=== PATIENT | male | born 1945 | race Caucasian/White ===

== ENCOUNTER 2022-08-18 13:34 | Inpatient (IN) | payer MEDICARE, OTHER ==
[2022-08-18] MEDS ORDERED: Pantoprazole 40 MG VIAL ONE ×2 (13:42→13:57)
[2022-08-18] MEDS ORDERED: Octreotide Acetate 100 MCG/ML VIAL ONE (13:42)
[2022-08-18] MEDS ORDERED: Octreotide Acetate 500 MCG/ML VIAL ONE (13:45)
[2022-08-18] MEDS ORDERED: Rocuronium Bromide 10 MG/ML (10ML VIAL) ONE (13:49)
[2022-08-18 13:51] LABS: #Basophils 0.1 thou/uL (0.0-0.2); #Lymphocytes 1.7 thou/uL (1.20-3.40); #Monocytes 0.5 thou/uL (0.11-0.59); #Neutrophils 11.7 thou/uL (1.40-6.50); %Basophils 0.6 % (0.0-1.0); %Eosinophils 0.2 % (0.0-10.0); %Lymphocytes 12.1 % (21.0-51.0); %Monocytes 3.4 % (0.0-10.0); %Neutrophils 83.7 % (42.0-75.0); Hemoglobin 8.5 g/dL (14.0-18.0); Mean Corpuscular HGB CONC 34.2 g/dL (32.0-36.0); Mean Corpuscular Hemoglobin 31.2 pg (27.0-31.0); Mean Corpuscular Volume 91.3 fl (78.0-98.0); Mean Platelet Volume 6.7 fL (7.4-10.4); Platelet Count 282 10x3/uL (130-400); RBC Distribution Width 13.3 % (11.5-14.5); Red Blood Cell (RBC) Count 2.72 mill/uL (4.70-6.10); White Blood Cell (WBC) Count 13.9 10x3/uL (4.8-10.8)
[2022-08-18 14:00] LABS: INR-International Normal Ratio 2.3; PTT 29.2 sec (22.9-36.1); Prothrombin Time 26.1 sec (12.0-14.7)
[2022-08-18] MEDS ORDERED: Octreotide Acetate 1,250 MCG in Sodium Chloride 0.9% 250 ML 250 ML IVPB SCH (14:00)
[2022-08-18] MEDS ORDERED: Pantoprazole 80 MG, Admixture Fee 1 EACH in Sodium Chloride 0.9% 100 ML IVPB SCH (14:00)
[2022-08-18] MEDS ORDERED: HUM PROTHROMBIN CPLX(PCC)4FACT 2,248 UNIT in Admixture Fee 1 EACH IV SCH (14:00)
[2022-08-18 14:12] LABS: ALT (SGPT) 12 U/L (8-55); AST (SGOT) 9 U/L (5-34); Albumin 2.9 g/dL (3.4-4.8); Alkaline Phosphatase 63 U/L (40-110); Anion Gap 22 mmol/L (10-20); BUN (Urea Nitrogen) 63 mg/dL (8.4-25.7); Bilirubin, Total 0.7 mg/dL (0.2-1.2); Calc. Creatinine Clearance 0 mL/min (70-130); Calcium 8.2 mg/dL (7.8-10.44); Carbon Dioxide 13 mmol/L (23-31); Chloride 103 mmol/L (98-107); Estimated GFR 30; Globulin 2.3 g/dL (2.4-3.5); Lipase 32 U/L (8-78); Protein, Total 5.2 g/dL (5.8-8.1); Sodium 132 mmol/L (136-145)
[2022-08-18] MEDS ORDERED: Fentanyl CADD 100 ML IV SCH (14:15)
[2022-08-18 14:17] LABS: Glucose 698 mg/dL (83-110); Potassium 6.2 mmol/L (3.5-5.1)
[2022-08-18 15:21] LABS: Bilirubin Negative (Negative); Blood, Urine Negative (Negative); Clarity Turbid (Clear); Glucose, Urine (Dipstick) Greater than 1000 mg/dL (Negative); Ketone, Urine Trace mg/dL (Negative); Leukocyte Negative Leu/uL (Negative); Nitrite Negative (Negative); Protein, Urine (Dipstick) 10 mg/dL (Neg-Trace); Specific Gravity, Urine 1.022 (1.002-1.036); Urobilinogen Normal mg/dL (Less than 2)
[2022-08-18] MEDS ORDERED: PROPOFOL 20 ML ONE (15:41)
[2022-08-18] MEDS ORDERED: Insulin Regular 300 UNITS/3 ML VIAL ONE (15:48)
[2022-08-18 15:53] LABS: SARS-CoV-2 NAA Rapid Test Not Detected (NotDetected)
[2022-08-18] MEDS ORDERED: Calcium Chloride 1 GM/10 ML Abboject SYRINGE ONE (15:54)
[2022-08-18] MEDS ORDERED: PHENYLEPHRINE-NS 100 MCG/ML 10 ML SYRINGE ONE (15:54)
[2022-08-18] MEDS ORDERED: PROPOFOL 200 MG/20 ML VIAL ONE (15:54)
[2022-08-18] MEDS ORDERED: NOREPINEPHRINE 8 MG/250 ML-D5W 250 ML IVPB PRN (16:13)
[2022-08-18] MEDS ORDERED: Electrolyte Replacement Protocol 1 EACH IVPB ONE (16:13)
[2022-08-18] MEDS ORDERED: HUMULIN R 100 UNITS in Sodium Chloride 0.9% 100 ML IVPB SCH ×2 (16:15→18:30)
[2022-08-18] MEDS ORDERED: Sodium Chloride 0.9% 1,000 ML IV SCH (16:15)
[2022-08-18] MEDS ORDERED: Electrolyte Replacement Protocol FS PRN (16:45)
[2022-08-18] MEDS ORDERED: Propofol 1,000 MG/100 ML VIAL IV ONE (16:55)
[2022-08-18] MEDS ORDERED: Midazolam HCl 2 mg/2 ml Vial SLOW IVP PRN (17:11)
[2022-08-18] MEDS ORDERED: Ventilator Sedation Protocol 1 EACH FS PRN (17:15)
[2022-08-18] MEDS ORDERED: Propofol BOLUS 1,000 MG/100 ML VIAL IV PRN (17:15)
[2022-08-18] MEDS ORDERED: DISCONTINUE PREVIOUS NARCOTIC PAIN MEDICATIONS AND BENZODIAZEPINES FS SCH (17:15)
[2022-08-18] MEDS ORDERED: Morphine 4 MG/ML VIAL SLOW IVP PRN (17:15)
[2022-08-18 17:18] VITALS: BMI 28.7
[2022-08-18 17:48] LABS: Actual Bicarbonate (HCO3v) 20 mEq/L (22-28); Base Excess -8.3 mEq/L (-2.0 to +3.0); Calcium, Ionized (venous) 1.25 mmol/L (1.16-1.32); Chloride (VBG) 106 mmol/L (98-106); Hemoglobin (Hb) 11.2 g/dL (12.6-17.4); Potassium (VBG) 4.34 mmol/L (3.70-5.30); Sodium 136.9 mmol/L (133-146); pH (venous) 7.21 (7.32-7.43)
[2022-08-18 18:02] LABS: Hemoglobin 10.6 g/dL (14.0-18.0); Mean Corpuscular HGB CONC 34.9 g/dL (32.0-36.0); Mean Corpuscular Hemoglobin 31.9 pg (27.0-31.0); Mean Corpuscular Volume 91.3 fl (78.0-98.0); Platelet Count 155 10x3/uL (130-400); RBC Distribution Width 12.5 % (11.5-14.5); Red Blood Cell (RBC) Count 3.32 mill/uL (4.70-6.10); White Blood Cell (WBC) Count 11.6 10x3/uL (4.8-10.8)
[2022-08-18 18:03] LABS: #Basophils 0.1 thou/uL (0.0-0.2); #Monocytes 0.4 thou/uL (0.11-0.59); #Neutrophils 10.2 thou/uL (1.40-6.50); %Basophils 0.5 % (0.0-1.0); %Eosinophils 0.1 % (0.0-10.0); %Lymphocytes 8.2 % (21.0-51.0); %Monocytes 3.1 % (0.0-10.0); %Neutrophils 88.1 % (42.0-75.0); Mean Platelet Volume 6.5 fL (7.4-10.4)
[2022-08-18 18:08] LABS: Lactic Acid 3.6 mmol/L (0.5-2.2)
[2022-08-18 18:25] LABS: ALT (SGPT) 11 U/L (8-55); AST (SGOT) 12 U/L (5-34); Albumin 3.3 g/dL (3.4-4.8); Alkaline Phosphatase 60 U/L (40-110); Anion Gap 16 mmol/L (10-20); BUN (Urea Nitrogen) 59 mg/dL (8.4-25.7); Bilirubin, Total 1.4 mg/dL (0.2-1.2); Calc. Creatinine Clearance 48 mL/min (70-130); Calcium 9.2 mg/dL (7.8-10.44); Carbon Dioxide 17 mmol/L (23-31); Chloride 108 mmol/L (98-107); Estimated GFR 36; Globulin 2.5 g/dL (2.4-3.5); Glucose 395 mg/dL (83-110); Magnesium 4.6 mg/dL (1.6-2.6); Phosphorus 3.1 mg/dL (2.3-4.7); Potassium 4.4 mmol/L (3.5-5.1); Protein, Total 5.8 g/dL (5.8-8.1); Sodium 137 mmol/L (136-145)
[2022-08-18] MEDS ORDERED: ADD ELECTROLYTE REPLACEMENT SET TO PROFILE FS SCH (18:30)
[2022-08-18] MEDS ORDERED: Dextrose 5% in Water 1,000 ML IV PRN (18:30)
[2022-08-18] MEDS ORDERED: Dextrose 5 %-0.45 % NaCl 1,000 ML IV PRN (18:30)
[2022-08-18] MEDS ORDERED: NS 0.9% w/ 20 MEQ KCL 1,000 ML/1,000 ML BAG IV PRN (18:30)
[2022-08-18] MEDS ORDERED: Insulin Regular 300 UNITS/3 ML VIAL IVP SCH (18:30)
[2022-08-18] MEDS ORDERED: Sodium Chloride 0.9% 1,000 ML IV PRN ×4 (18:30)
[2022-08-18] MEDS: cefTRIAXone\\ROCEPHIN 1 GM in Sodium Chloride 0.9% 100 ML IVPB SCH (18:31)
[2022-08-18] MEDS: NS 0.9% w/ 20 MEQ KCL 1,000 ML/1,000 ML BAG IV PRN ×2 (18:35→21:06)
[2022-08-18] MEDS: Propofol 1,000 MG/100 ML VIAL IV PRN (21:05)
[2022-08-18 21:51] LABS: Anion Gap 12 mmol/L (10-20); BUN (Urea Nitrogen) 50 mg/dL (8.4-25.7); Calc. Creatinine Clearance 56 mL/min (70-130); Carbon Dioxide 19 mmol/L (23-31); Chloride 115 mmol/L (98-107); Estimated GFR 44; Glucose 158 mg/dL (83-110); Potassium 4.6 mmol/L (3.5-5.1); Sodium 141 mmol/L (136-145)
[2022-08-18] MEDS: Dextrose 50% Abboject 50 ML SYRINGE SLOW IVP PRN (22:22)
[2022-08-18] MEDS: D5 1/2 NS w/20 mEq KCL 1,000 ML IV PRN (22:22)
[2022-08-19] MEDS: Dextrose 50% Abboject 50 ML SYRINGE SLOW IVP PRN ×2 (00:29→06:30)
[2022-08-19] MEDS: Pantoprazole 80 MG in Sodium Chloride 0.9% 100 ML IVPB SCH ×2 (00:39→11:03)
[2022-08-19 01:51] LABS: Anion Gap 10 mmol/L (10-20); BUN (Urea Nitrogen) 48 mg/dL (8.4-25.7); Calc. Creatinine Clearance 58 mL/min (70-130); Calcium 7.7 mg/dL (7.8-10.44); Carbon Dioxide 20 mmol/L (23-31); Chloride 115 mmol/L (98-107); Estimated GFR 45; Glucose 235 mg/dL (83-110); Potassium 4.8 mmol/L (3.5-5.1); Sodium 140 mmol/L (136-145)
[2022-08-19] MEDS: D5 1/2 NS w/20 mEq KCL 1,000 ML IV PRN ×2 (02:03→05:44)
[2022-08-19] MEDS: Propofol 1,000 MG/100 ML VIAL IV PRN ×2 (02:03→05:44)
[2022-08-19 05:20] LABS: #Eosinphils 0.1 thou/uL (0.0-0.7); #Lymphocytes 1.5 thou/uL (1.20-3.40); #Monocytes 0.4 thou/uL (0.11-0.59); #Neutrophils 6.7 thou/uL (1.40-6.50); %Basophils 0.1 % (0.0-1.0); %Eosinophils 1.6 % (0.0-10.0); %Lymphocytes 16.7 % (21.0-51.0); %Neutrophils 76.6 % (42.0-75.0); Hemoglobin 7.7 g/dL (14.0-18.0); Mean Corpuscular HGB CONC 34.9 g/dL (32.0-36.0); Mean Corpuscular Hemoglobin 31.7 pg (27.0-31.0); Mean Corpuscular Volume 90.9 fl (78.0-98.0); Mean Platelet Volume 6.7 fL (7.4-10.4); Platelet Count 150 10x3/uL (130-400); RBC Distribution Width 13.2 % (11.5-14.5); Red Blood Cell (RBC) Count 2.43 mill/uL (4.70-6.10); White Blood Cell (WBC) Count 8.7 10x3/uL (4.8-10.8)
[2022-08-19 05:44] LABS: ALT (SGPT) 9 U/L (8-55); AST (SGOT) 13 U/L (5-34); Albumin 2.6 g/dL (3.4-4.8); Alkaline Phosphatase 46 U/L (40-110); Anion Gap 10 mmol/L (10-20); BUN (Urea Nitrogen) 43 mg/dL (8.4-25.7); Bilirubin, Total 0.4 mg/dL (0.2-1.2); Calc. Creatinine Clearance 60 mL/min (70-130); Calcium 7.5 mg/dL (7.8-10.44); Carbon Dioxide 17 mmol/L (23-31); Chloride 117 mmol/L (98-107); Estimated GFR 47; Globulin 1.9 g/dL (2.4-3.5); Glucose 162 mg/dL (83-110); Potassium 4.7 mmol/L (3.5-5.1); Protein, Total 4.5 g/dL (5.8-8.1); Sodium 139 mmol/L (136-145)
[2022-08-19 07:05] LABS: Actual Bicarbonate (HCO3a) 17.4 mEq/L (22-28); Base Excess (BEa) -7.4 mEq/L (-2.0 to +3.0); CO2 Tension 32.3 mmHg (35.0-45.0); Calcium, Ionized (arterial) 1.13 mmol/L (1.12-1.30); Hemoglobin (Hb) 8.6 g/dL (14.0-18.0); O2 Tension (PaO2), arterial 114.8 mmHg (> 70.0); Potassium - ABG Lab 4.62 mmol/L (3.70-5.30); pH, Arterial 7.35 (7.35-7.45)
[2022-08-19 07:07] LABS: ALV-art Gradient 58.725 mmHg (0-20); Puncture Site LRA
[2022-08-19] MEDS ORDERED: HumaLOG 300 UNITS/3 ML VIAL SC SCH (09:45)
[2022-08-19] MEDS ORDERED: Insulin Glargine 30 UNITS/0.3 ML VIAL SC SCH (10:30)
[2022-08-19] MEDS: Albumin 25% 25 GM/100 ML BOT IVPB SCH ×3 (11:26→23:04)
[2022-08-19] MEDS ORDERED: Lactated Ringer's 1,000 ML IV SCH (11:45)
[2022-08-19 12:42] LABS: #Eosinphils 0.3 thou/uL (0.0-0.7); #Lymphocytes 1.3 thou/uL (1.20-3.40); #Monocytes 0.6 thou/uL (0.11-0.59); #Neutrophils 7.8 thou/uL (1.40-6.50); %Basophils 0.1 % (0.0-1.0); %Eosinophils 3.5 % (0.0-10.0); %Monocytes 6.2 % (0.0-10.0); %Neutrophils 77.2 % (42.0-75.0); Hemoglobin 7.7 g/dL (14.0-18.0); Mean Corpuscular HGB CONC 33.9 g/dL (32.0-36.0); Mean Corpuscular Hemoglobin 30.7 pg (27.0-31.0); Mean Corpuscular Volume 90.7 fl (78.0-98.0); Mean Platelet Volume 6.4 fL (7.4-10.4); Platelet Count 129 10x3/uL (130-400); RBC Distribution Width 13.2 % (11.5-14.5)
[2022-08-19] MEDS: Dextrose 5 % And 0.9 % NaCl 1,000 ML IV SCH (15:44)
[2022-08-19] MEDS: cefTRIAXone\\ROCEPHIN 1 GM in Sodium Chloride 0.9% 100 ML IVPB SCH (18:01)
[2022-08-19] MEDS: Morphine 2 MG/ML VIAL SLOW IVP PRN ×2 (19:03→23:04)
[2022-08-19] MEDS: Pantoprazole 80 MG, Admixture Fee 1 EACH in Sodium Chloride 0.9% 100 ML IVPB SCH (20:07)
[2022-08-19] MEDS: Ipratropium/Albuterol 3 ML NEB NEB PRN (21:22)
[2022-08-20] MEDS: Ondansetron PF 4 MG/2 ML Vial IVP PRN (01:01)
[2022-08-20] MEDS: Ipratropium/Albuterol 3 ML NEB NEB PRN ×2 (03:19→10:45)
[2022-08-20 05:39] LABS: #Eosinphils 0.1 thou/uL (0.0-0.7); #Lymphocytes 0.9 thou/uL (1.20-3.40); #Monocytes 0.4 thou/uL (0.11-0.59); #Neutrophils 6.6 thou/uL (1.40-6.50); %Basophils 0.1 % (0.0-1.0); %Eosinophils 1.3 % (0.0-10.0); %Monocytes 4.9 % (0.0-10.0); %Neutrophils 82.7 % (42.0-75.0); Hemoglobin 7.2 g/dL (14.0-18.0); Mean Corpuscular HGB CONC 34.7 g/dL (32.0-36.0); Mean Corpuscular Hemoglobin 31.7 pg (27.0-31.0); Mean Corpuscular Volume 91.4 fl (78.0-98.0); Platelet Count 120 10x3/uL (130-400); RBC Distribution Width 13.3 % (11.5-14.5); Red Blood Cell (RBC) Count 2.26 mill/uL (4.70-6.10)
[2022-08-20] MEDS: Dextrose 5 % And 0.9 % NaCl 1,000 ML IV SCH ×2 (05:46→12:03)
[2022-08-20] MEDS: HumaLOG 300 UNITS/3 ML VIAL SC PRN ×3 (05:46→17:32)
[2022-08-20] MEDS: Albumin 25% 25 GM/100 ML BOT IVPB SCH ×3 (05:47→17:33)
[2022-08-20 06:01] LABS: ALT (SGPT) 13 U/L (8-55); AST (SGOT) 57 U/L (5-34); Albumin 3.4 g/dL (3.4-4.8); Alkaline Phosphatase 51 U/L (40-110); Anion Gap 12 mmol/L (10-20); BUN (Urea Nitrogen) 27 mg/dL (8.4-25.7); Bilirubin, Total 0.7 mg/dL (0.2-1.2); Calc. Creatinine Clearance 64 mL/min (70-130); Carbon Dioxide 19 mmol/L (23-31); Chloride 114 mmol/L (98-107); Estimated GFR 50; Globulin 2.2 g/dL (2.4-3.5); Glucose 266 mg/dL (83-110); Potassium 4.4 mmol/L (3.5-5.1); Protein, Total 5.6 g/dL (5.8-8.1); Sodium 141 mmol/L (136-145)
[2022-08-20] MEDS: Pantoprazole 80 MG, Admixture Fee 1 EACH in Sodium Chloride 0.9% 100 ML IVPB SCH (06:09)
[2022-08-20] MEDS: Insulin Glargine 30 UNITS/0.3 ML VIAL SC SCH (10:23)
[2022-08-20] MEDS ORDERED: Furosemide 40 MG/4 ML VIAL ONE (11:09)
[2022-08-20] MEDS ORDERED: Furosemide 40 MG/4 ML VIAL SLOW IVP SCH (11:15)
[2022-08-20] MEDS: Morphine 2 MG/ML VIAL SLOW IVP PRN (14:51)
[2022-08-20] MEDS ORDERED: traMADol HCl 50 MG TAB PO PRN (15:03)
[2022-08-20] MEDS: Ipratropium/Albuterol 3 ML NEB EZPAP PRN ×3 (15:08→23:40)
[2022-08-20] MEDS: cefTRIAXone\\ROCEPHIN 1 GM in Sodium Chloride 0.9% 100 ML IVPB SCH (17:33)
[2022-08-20] MEDS: Pantoprazole 40 MG VIAL IVP SCH (21:11)
[2022-08-21] MEDS: Albumin 25% 25 GM/100 ML BOT IVPB SCH ×2 (00:21→07:02)
[2022-08-21] MEDS: Ipratropium/Albuterol 3 ML NEB EZPAP PRN ×2 (03:10→20:55)
[2022-08-21 04:19] LABS: #Lymphocytes 1.1 thou/uL (1.20-3.40); #Monocytes 0.5 thou/uL (0.11-0.59); #Neutrophils 6.6 thou/uL (1.40-6.50); %Basophils 0.1 % (0.0-1.0); %Eosinophils 0.3 % (0.0-10.0); %Lymphocytes 13.3 % (21.0-51.0); %Monocytes 6.1 % (0.0-10.0); %Neutrophils 80.3 % (42.0-75.0); Hemoglobin 6.6 g/dL (14.0-18.0); Mean Corpuscular HGB CONC 34.9 g/dL (32.0-36.0); Mean Corpuscular Hemoglobin 31.7 pg (27.0-31.0); Mean Corpuscular Volume 90.9 fl (78.0-98.0); Platelet Count 119 10x3/uL (130-400); RBC Distribution Width 13.4 % (11.5-14.5); Red Blood Cell (RBC) Count 2.08 mill/uL (4.70-6.10); White Blood Cell (WBC) Count 8.2 10x3/uL (4.8-10.8)
[2022-08-21 04:34] LABS: ALT (SGPT) 16 U/L (8-55); AST (SGOT) 49 U/L (5-34); Albumin 4.3 g/dL (3.4-4.8); Alkaline Phosphatase 54 U/L (40-110); Anion Gap 16 mmol/L (10-20); BUN (Urea Nitrogen) 30 mg/dL (8.4-25.7); Bilirubin, Total 0.9 mg/dL (0.2-1.2); Calc. Creatinine Clearance 52 mL/min (70-130); Calcium 8.4 mg/dL (7.8-10.44); Carbon Dioxide 18 mmol/L (23-31); Chloride 111 mmol/L (98-107); Estimated GFR 39; Globulin 2.2 g/dL (2.4-3.5); Glucose 269 mg/dL (83-110); Magnesium 1.7 mg/dL (1.6-2.6); Potassium 3.9 mmol/L (3.5-5.1); Protein, Total 6.5 g/dL (5.8-8.1); Sodium 141 mmol/L (136-145)
[2022-08-21] MEDS ORDERED: Furosemide 40 MG/4 ML VIAL SLOW IVP SCH ×2 (05:15→08:00)
[2022-08-21 06:09] LABS: Actual Bicarbonate (HCO3a) 18.4 mEq/L (22-28); CO2 Tension 36.1 mmHg (35.0-45.0); Calcium, Ionized (arterial) 1.13 mmol/L (1.12-1.30); Carboxyhemoglobin (COHb) 0.3 gm% (0.0-3.0); Hemoglobin (Hb) 7.8 g/dL (14.0-18.0); Potassium - ABG Lab 3.94 mmol/L (3.70-5.30); pH, Arterial 7.32 (7.35-7.45)
[2022-08-21 06:11] LABS: O2 Tension (PaO2), arterial 40.1 mmHg (> 70.0); Puncture Site RRA
[2022-08-21] MEDS ORDERED: Metoprolol Tartrate 5 MG/5 ML VIAL ONE (07:03)
[2022-08-21] MEDS ORDERED: Digoxin 0.5 MG/2 ML AMP ONE (07:07)
[2022-08-21] MEDS: Diltiazem HCl 125 MG, Admixture Fee 1 EACH in Sodium Chloride 0.9% 100 ML IVPB SCH ×2 (07:42→18:19)
[2022-08-21] MEDS ORDERED: Piperacillin/Tazobactam 3.375 GM in Sodium Chloride 0.9% 100 ML IVPB SCH ×2 (07:45→08:00)
[2022-08-21] MEDS ORDERED: Magnesium 2 GM/50 ML(in water) 2 GM in Premix Bag 1 BAG IVPB SCH (08:00)
[2022-08-21] MEDS ORDERED: NPH, Human Insulin Isophane 300 UNIT/3 ML VIAL SC SCH (09:00)
[2022-08-21] MEDS: Insulin Glargine 30 UNITS/0.3 ML VIAL SC SCH (09:41)
[2022-08-21] MEDS: Pantoprazole 40 MG VIAL IVP SCH ×2 (09:58→20:38)
[2022-08-21] MEDS: HumaLOG 300 UNITS/3 ML VIAL SC PRN ×2 (10:24→16:45)
[2022-08-21] MEDS: Dextrose 5 % And 0.9 % NaCl 1,000 ML IV SCH (12:00)
[2022-08-21] MEDS: Morphine 2 MG/ML VIAL SLOW IVP PRN ×2 (12:23→21:51)
[2022-08-21 12:45] LABS: Hemoglobin 8.8 g/dL (14.0-18.0)
[2022-08-21] MEDS: Piperacillin/Tazobactam 3.375 GM in Sodium Chloride 0.9% 100 ML IVPB SCH ×2 (12:57→20:37)
[2022-08-21 20:06] LABS: Hemoglobin 8.7 g/dL (14.0-18.0)
[2022-08-21] MEDS ORDERED: Insulin NPH Human Isophane 100 UNIT/ML (10 ML VIAL) SC SCH (21:00)
[2022-08-22] MEDS: Piperacillin/Tazobactam 3.375 GM in Sodium Chloride 0.9% 100 ML IVPB SCH ×3 (04:07→20:27)
[2022-08-22 04:14] LABS: #Eosinphils 0.1 thou/uL (0.0-0.7); #Lymphocytes 1.1 thou/uL (1.20-3.40); #Monocytes 0.5 thou/uL (0.11-0.59); %Basophils 0.1 % (0.0-1.0); %Monocytes 5.6 % (0.0-10.0); %Neutrophils 80.2 % (42.0-75.0); Hemoglobin 8.1 g/dL (14.0-18.0); Mean Corpuscular HGB CONC 34.6 g/dL (32.0-36.0); Mean Corpuscular Hemoglobin 31.9 pg (27.0-31.0); Mean Corpuscular Volume 92.4 fl (78.0-98.0); Mean Platelet Volume 7.6 fL (7.4-10.4); Platelet Count 123 10x3/uL (130-400); RBC Distribution Width 13.4 % (11.5-14.5); Red Blood Cell (RBC) Count 2.54 mill/uL (4.70-6.10); White Blood Cell (WBC) Count 8.7 10x3/uL (4.8-10.8)
[2022-08-22 04:38] LABS: ALT (SGPT) 15 U/L (8-55); AST (SGOT) 32 U/L (5-34); Albumin 3.9 g/dL (3.4-4.8); Alkaline Phosphatase 60 U/L (40-110); Anion Gap 16 mmol/L (10-20); BUN (Urea Nitrogen) 39 mg/dL (8.4-25.7); Bilirubin, Total 1.8 mg/dL (0.2-1.2); Calc. Creatinine Clearance 47 mL/min (70-130); Calcium 8.7 mg/dL (7.8-10.44); Carbon Dioxide 20 mmol/L (23-31); Chloride 113 mmol/L (98-107); Estimated GFR 34; Globulin 2.3 g/dL (2.4-3.5); Glucose 301 mg/dL (83-110); Potassium 3.5 mmol/L (3.5-5.1); Protein, Total 6.2 g/dL (5.8-8.1); Sodium 145 mmol/L (136-145)
[2022-08-22] MEDS: HumaLOG 300 UNITS/3 ML VIAL SC PRN ×2 (06:15→13:00)
[2022-08-22] MEDS: Diltiazem HCl 125 MG, Admixture Fee 1 EACH in Sodium Chloride 0.9% 100 ML IVPB SCH ×2 (08:56→23:42)
[2022-08-22] MEDS: Pantoprazole 40 MG VIAL IVP SCH ×2 (08:58→20:26)
[2022-08-22] MEDS: Furosemide 40 MG/4 ML VIAL SLOW IVP SCH (08:58)
[2022-08-22] MEDS: Insulin NPH Human Isophane 100 UNIT/ML (10 ML VIAL) SC SCH ×2 (08:59→20:27)
[2022-08-22] MEDS: Ipratropium/Albuterol 3 ML NEB EZPAP PRN ×2 (17:19→21:49)
[2022-08-22] MEDS ORDERED: Potassium Chloride 20 MEQ TAB PO SCH (20:15)
[2022-08-22] MEDS: Ondansetron PF 4 MG/2 ML Vial IVP PRN (21:19)
[2022-08-22] MEDS: Bisacodyl 10 MG SUPP PR SCH (22:28)
[2022-08-23] MEDS: Piperacillin/Tazobactam 3.375 GM in Sodium Chloride 0.9% 100 ML IVPB SCH ×3 (04:02→19:53)
[2022-08-23 05:01] LABS: #Eosinphils 0.4 thou/uL (0.0-0.7); #Lymphocytes 1.2 thou/uL (1.20-3.40); #Monocytes 0.4 thou/uL (0.11-0.59); #Neutrophils 5.9 thou/uL (1.40-6.50); %Basophils 0.2 % (0.0-1.0); %Eosinophils 4.8 % (0.0-10.0); %Lymphocytes 15.4 % (21.0-51.0); %Neutrophils 74.6 % (42.0-75.0); Hemoglobin 7.8 g/dL (14.0-18.0); Mean Corpuscular Hemoglobin 32.1 pg (27.0-31.0); Mean Corpuscular Volume 91.9 fl (78.0-98.0); Mean Platelet Volume 7.3 fL (7.4-10.4); Platelet Count 149 10x3/uL (130-400); RBC Distribution Width 13.6 % (11.5-14.5); Red Blood Cell (RBC) Count 2.43 mill/uL (4.70-6.10); White Blood Cell (WBC) Count 7.9 10x3/uL (4.8-10.8)
[2022-08-23 05:21] LABS: ALT (SGPT) 15 U/L (8-55); AST (SGOT) 15 U/L (5-34); Albumin 3.4 g/dL (3.4-4.8); Alkaline Phosphatase 60 U/L (40-110); Anion Gap 12 mmol/L (10-20); BUN (Urea Nitrogen) 45 mg/dL (8.4-25.7); Bilirubin, Total 1.4 mg/dL (0.2-1.2); Calc. Creatinine Clearance 52 mL/min (70-130); Calcium 8.3 mg/dL (7.8-10.44); Carbon Dioxide 21 mmol/L (23-31); Chloride 112 mmol/L (98-107); Estimated GFR 39; Globulin 2.3 g/dL (2.4-3.5); Glucose 172 mg/dL (83-110); Potassium 3.4 mmol/L (3.5-5.1); Protein, Total 5.7 g/dL (5.8-8.1); Sodium 142 mmol/L (136-145)
[2022-08-23] MEDS: Bisacodyl 10 MG SUPP PR SCH ×3 (07:22→21:47)
[2022-08-23] MEDS: HumaLOG 300 UNITS/3 ML VIAL SC PRN ×2 (07:29→11:31)
[2022-08-23] MEDS ORDERED: Potassium Chloride 20 MEQ TAB PO SCH (08:00)
[2022-08-23] MEDS ORDERED: Magnesium 2 GM/50 ML(in water) 2 GM in Premix Bag 1 BAG IVPB SCH (08:00)
[2022-08-23] MEDS: Furosemide 40 MG/4 ML VIAL SLOW IVP SCH (09:56)
[2022-08-23] MEDS: Pantoprazole 40 MG VIAL IVP SCH ×2 (09:56→21:46)
[2022-08-23] MEDS: Insulin NPH Human Isophane 100 UNIT/ML (10 ML VIAL) SC SCH ×2 (09:58→21:44)
[2022-08-23] MEDS: Ipratropium/Albuterol 3 ML NEB EZPAP PRN (11:25)
[2022-08-23] MEDS: Acetaminophen 325 MG TAB PO PRN (11:26)
[2022-08-23] MEDS: Albumin 25% 25 GM/100 ML BOT IVPB SCH ×2 (11:44→18:15)
[2022-08-23] MEDS ORDERED: Simethicone Chewable 80 MG TAB PO SCH (18:00)
[2022-08-23 18:27] LABS: Hemoglobin 8.5 g/dL (14.0-18.0)
[2022-08-24] MEDS: Albumin 25% 25 GM/100 ML BOT IVPB SCH ×2 (00:27→06:21)
[2022-08-24] MEDS: Ipratropium/Albuterol 3 ML NEB EZPAP PRN (01:55)
[2022-08-24] MEDS: Piperacillin/Tazobactam 3.375 GM in Sodium Chloride 0.9% 100 ML IVPB SCH ×3 (03:58→21:00)
[2022-08-24 04:18] LABS: #Eosinphils 0.5 thou/uL (0.0-0.7); #Lymphocytes 1.2 thou/uL (1.20-3.40); #Monocytes 0.3 thou/uL (0.11-0.59); #Neutrophils 5.4 thou/uL (1.40-6.50); %Basophils 0.2 % (0.0-1.0); %Eosinophils 6.9 % (0.0-10.0); %Lymphocytes 15.7 % (21.0-51.0); %Neutrophils 73.3 % (42.0-75.0); Hemoglobin 7.6 g/dL (14.0-18.0); Mean Corpuscular Hemoglobin 31.3 pg (27.0-31.0); Mean Platelet Volume 7.2 fL (7.4-10.4); Platelet Count 158 10x3/uL (130-400); RBC Distribution Width 13.3 % (11.5-14.5); Red Blood Cell (RBC) Count 2.42 mill/uL (4.70-6.10); White Blood Cell (WBC) Count 7.3 10x3/uL (4.8-10.8)
[2022-08-24 04:36] LABS: Anion Gap 15 mmol/L (10-20); BUN (Urea Nitrogen) 44 mg/dL (8.4-25.7); Calc. Creatinine Clearance 57 mL/min (70-130); Calcium 8.4 mg/dL (7.8-10.44); Carbon Dioxide 19 mmol/L (23-31); Chloride 111 mmol/L (98-107); Estimated GFR 41; Glucose 108 mg/dL (83-110); Potassium 3.3 mmol/L (3.5-5.1); Sodium 142 mmol/L (136-145)
[2022-08-24] MEDS: Bisacodyl 10 MG SUPP PR SCH ×3 (06:21→21:28)
[2022-08-24] MEDS ORDERED: Potassium Chloride 20 MEQ TAB PO SCH (08:00)
[2022-08-24] MEDS: Pantoprazole 40 MG VIAL IVP SCH ×2 (09:51→21:28)
[2022-08-24] MEDS: Furosemide 40 MG/4 ML VIAL SLOW IVP SCH (09:51)
[2022-08-24] MEDS: Insulin NPH Human Isophane 100 UNIT/ML (10 ML VIAL) SC SCH (09:52)
[2022-08-24] MEDS ORDERED: ePHEDrine 50 MG/ML VIAL ONE (13:10)
[2022-08-24] MEDS ORDERED: Lidocaine 1% PF 5 ML VIAL ONE (13:10)
[2022-08-24] MEDS ORDERED: PROPOFOL 200 MG/20 ML VIAL ONE (13:10)
[2022-08-24] MEDS ORDERED: Insulin NPH Human Isophane 100 UNIT/ML (10 ML VIAL) SC SCH (16:15)
[2022-08-24] MEDS: HumaLOG 300 UNITS/3 ML VIAL SC PRN (22:22)
[2022-08-25 04:31] LABS: #Eosinphils 0.4 thou/uL (0.0-0.7); #Lymphocytes 1.3 thou/uL (1.20-3.40); #Monocytes 0.4 thou/uL (0.11-0.59); #Neutrophils 4.4 thou/uL (1.40-6.50); %Basophils 0.1 % (0.0-1.0); %Eosinophils 6.6 % (0.0-10.0); %Lymphocytes 19.9 % (21.0-51.0); %Monocytes 6.6 % (0.0-10.0); %Neutrophils 66.9 % (42.0-75.0); Hemoglobin 8.2 g/dL (14.0-18.0); Mean Corpuscular HGB CONC 34.4 g/dL (32.0-36.0); Mean Corpuscular Hemoglobin 31.8 pg (27.0-31.0); Mean Corpuscular Volume 92.4 fl (78.0-98.0); Mean Platelet Volume 7.2 fL (7.4-10.4); Platelet Count 181 10x3/uL (130-400); RBC Distribution Width 13.3 % (11.5-14.5); Red Blood Cell (RBC) Count 2.57 mill/uL (4.70-6.10); White Blood Cell (WBC) Count 6.6 10x3/uL (4.8-10.8)
[2022-08-25] MEDS: Piperacillin/Tazobactam 3.375 GM in Sodium Chloride 0.9% 100 ML IVPB SCH ×3 (04:42→19:51)
[2022-08-25 04:47] LABS: Anion Gap 13 mmol/L (10-20); BUN (Urea Nitrogen) 39 mg/dL (8.4-25.7); Calc. Creatinine Clearance 64 mL/min (70-130); Calcium 8.3 mg/dL (7.8-10.44); Carbon Dioxide 22 mmol/L (23-31); Chloride 112 mmol/L (98-107); Estimated GFR 47; Glucose 115 mg/dL (83-110); Potassium 3.4 mmol/L (3.5-5.1); Sodium 144 mmol/L (136-145)
[2022-08-25] MEDS ORDERED: Potassium Chloride 40 MEQ in Premix Bag 1 BAG IVPB SCH (06:15)
[2022-08-25] MEDS: Bisacodyl 10 MG SUPP PR SCH ×3 (06:23→20:27)
[2022-08-25] MEDS: Furosemide 40 MG/4 ML VIAL SLOW IVP SCH (09:49)
[2022-08-25] MEDS: Pantoprazole 40 MG VIAL IVP SCH ×2 (09:49→20:47)
[2022-08-25] MEDS: Insulin NPH Human Isophane 100 UNIT/ML (10 ML VIAL) SC SCH ×2 (09:51→20:48)
[2022-08-25] MEDS: HumaLOG 300 UNITS/3 ML VIAL SC PRN (18:12)
[2022-08-26 04:25] LABS: #Eosinphils 0.4 thou/uL (0.0-0.7); #Lymphocytes 1.3 thou/uL (1.20-3.40); #Monocytes 0.4 thou/uL (0.11-0.59); %Basophils 0.6 % (0.0-1.0); %Eosinophils 5.2 % (0.0-10.0); %Lymphocytes 18.4 % (21.0-51.0); %Neutrophils 70.8 % (42.0-75.0); Hemoglobin 9.3 g/dL (14.0-18.0); Mean Corpuscular Hemoglobin 31.4 pg (27.0-31.0); Mean Corpuscular Volume 92.3 fl (78.0-98.0); Mean Platelet Volume 7.2 fL (7.4-10.4); Platelet Count 206 10x3/uL (130-400); Red Blood Cell (RBC) Count 2.95 mill/uL (4.70-6.10)
[2022-08-26 04:33] LABS: Anion Gap 14 mmol/L (10-20); BUN (Urea Nitrogen) 30 mg/dL (8.4-25.7); Calc. Creatinine Clearance 71 mL/min (70-130); Calcium 8.7 mg/dL (7.8-10.44); Carbon Dioxide 21 mmol/L (23-31); Chloride 112 mmol/L (98-107); Estimated GFR 54; Glucose 132 mg/dL (83-110); Potassium 3.5 mmol/L (3.5-5.1); Sodium 143 mmol/L (136-145)
[2022-08-26] MEDS ORDERED: Potassium Chloride 40 MEQ in Premix Bag 1 BAG IVPB SCH (08:00)
[2022-08-26] MEDS: Pantoprazole 40 MG VIAL IVP SCH ×2 (09:06→20:33)
[2022-08-26] MEDS: Acetaminophen 325 MG TAB PO PRN (09:07)
[2022-08-26] MEDS: Insulin NPH Human Isophane 100 UNIT/ML (10 ML VIAL) SC SCH ×2 (09:08→20:33)
[2022-08-26] MEDS: Furosemide 40 MG/4 ML VIAL SLOW IVP SCH (09:08)
[2022-08-26] MEDS: Bisacodyl 10 MG SUPP PR SCH ×2 (09:09→20:32)
[2022-08-26] MEDS: HumaLOG 300 UNITS/3 ML VIAL SC PRN ×2 (11:39→17:39)
[2022-08-26 16:48] VITALS: BP 109/64
[2022-08-26] MEDS: Budesonide 0.25 MG/2 ML NEB INH SCH (19:00)
[2022-08-26] MEDS: Ipratropium/Albuterol 3 ML NEB EZPAP PRN (19:01)
[2022-08-27] MEDS: Ipratropium/Albuterol 3 ML NEB EZPAP PRN ×2 (00:16→06:49)
[2022-08-27 04:20] LABS: #Eosinphils 0.2 thou/uL (0.0-0.7); #Lymphocytes 1.5 thou/uL (1.20-3.40); #Monocytes 0.4 thou/uL (0.11-0.59); %Basophils 0.2 % (0.0-1.0); %Eosinophils 3.2 % (0.0-10.0); %Monocytes 5.3 % (0.0-10.0); %Neutrophils 70.3 % (42.0-75.0); Hemoglobin 8.7 g/dL (14.0-18.0); Mean Corpuscular HGB CONC 33.4 g/dL (32.0-36.0); Mean Corpuscular Hemoglobin 30.7 pg (27.0-31.0); Mean Corpuscular Volume 91.9 fl (78.0-98.0); Mean Platelet Volume 7.2 fL (7.4-10.4); Platelet Count 194 10x3/uL (130-400); RBC Distribution Width 13.1 % (11.5-14.5); Red Blood Cell (RBC) Count 2.84 mill/uL (4.70-6.10); White Blood Cell (WBC) Count 7.1 10x3/uL (4.8-10.8)
[2022-08-27 04:38] LABS: Anion Gap 14 mmol/L (10-20); BUN (Urea Nitrogen) 24 mg/dL (8.4-25.7); Calc. Creatinine Clearance 70 mL/min (70-130); Calcium 8.5 mg/dL (7.8-10.44); Carbon Dioxide 22 mmol/L (23-31); Chloride 109 mmol/L (98-107); Estimated GFR 54; Glucose 176 mg/dL (83-110); Potassium 3.6 mmol/L (3.5-5.1); Sodium 141 mmol/L (136-145)
[2022-08-27] MEDS: HumaLOG 300 UNITS/3 ML VIAL SC PRN ×3 (04:53→17:12)
[2022-08-27] MEDS: Budesonide 0.25 MG/2 ML NEB INH SCH (06:49)
[2022-08-27] MEDS ORDERED: Furosemide 40 MG/4 ML VIAL SLOW IVP SCH (08:51)
[2022-08-27] MEDS: Bisacodyl 10 MG SUPP PR SCH (09:15)
[2022-08-27] MEDS: Pantoprazole 40 MG VIAL IVP SCH (09:16)
[2022-08-27] MEDS: Insulin NPH Human Isophane 100 UNIT/ML (10 ML VIAL) SC SCH (09:16)
[2022-08-27 16:32] VITALS: TEMP 98.5
== END 2022-08-27 18:15 | DRG 368 ==
LOC: ERS 13:34 → CCU 16:01 → SDC 16:01 → CCU 17:07 → 2NO 08-20 18:22 → CCU 08-21 06:53
PROVIDERS: ADMIT Family Medicine; ATTEND Family Medicine
PROC: 30233N1 Transfusion of Nonautologous Red Blood Cells into Peripheral Vein, Percutaneous Approach (ICD-10-PCS; principal; 2022-08-18)
PROC: 30233K1 Transfusion of Nonautologous Frozen Plasma into Peripheral Vein, Percutaneous Approach (ICD-10-PCS; 2022-08-18)
PROC: 3E033XZ Introduction of Vasopressor into Peripheral Vein, Percutaneous Approach (ICD-10-PCS; 2022-08-18)
PROC: 30283B1 Transfusion of Nonautologous 4-Factor Prothrombin Complex Concentrate into Vein, Percutaneous Approach (ICD-10-PCS; 2022-08-18)
PROC: 5A1935Z Respiratory Ventilation, Less than 24 Consecutive Hours (ICD-10-PCS; 2022-08-18)
PROC: 06HY33Z Insertion of Infusion Device into Lower Vein, Percutaneous Approach (ICD-10-PCS; 2022-08-18)
PROC: 0BH17EZ Insertion of Endotracheal Airway into Trachea, Via Natural or Artificial Opening (ICD-10-PCS; 2022-08-18)
PROC: 0W3P8ZZ Control Bleeding in Gastrointestinal Tract, Via Natural or Artificial Opening Endoscopic (ICD-10-PCS; 2022-08-18)
PROC: 5A09357 Assistance with Respiratory Ventilation, Less than 24 Consecutive Hours, Continuous Positive Airway Pressure (ICD-10-PCS; 2022-08-21)
PROC: 0D9 Gastrointestinal System, Drainage (ICD-10-PCS; 2022-08-24)
DX: K22.6 Gastro-esophageal laceration-hemorrhage syndrome (principal); E11.10 Type 2 diabetes mellitus with ketoacidosis without coma; G93.41 Metabolic encephalopathy; R57.8 Other shock; J96.01 Acute respiratory failure with hypoxia; J69.0 Pneumonitis due to inhalation of food and vomit; K56.7 Ileus, unspecified; N17.9 Acute kidney failure, unspecified; D68.8 Other specified coagulation defects; Z20.822 Contact with and (suspected) exposure to COVID-19; K22.11 Ulcer of esophagus with bleeding; K64.8 Other hemorrhoids; I48.0 Paroxysmal atrial fibrillation; I10 Essential (primary) hypertension; E78.5 Hyperlipidemia, unspecified; J44.9 Chronic obstructive pulmonary disease, unspecified; G47.33 Obstructive sleep apnea (adult) (pediatric); E87.5 Hyperkalemia; Z78.1 Physical restraint status; Z95.2 Presence of prosthetic heart valve; Z88.8 Allergy status to other drugs, medicaments and biological substances; Z79.899 Other long term (current) drug therapy; Z79.01 Long term (current) use of anticoagulants; Z79.82 Long term (current) use of aspirin
CPT/HCPCS: 0439T; 31500; 36415; 36416; 36430; 36556; 36600; 51702; 71045; 74018; 80048; 80053; 81003; 82010; 82805; 83605; 83690; 83735; 83880; 84100; 84484; 85025; 85610; 85730; 86850; 86900; 86901; 87811; 93005; 93010; 93306; 94002; 94003; 94640; 94660; 94760; 96361; 96365; 96366; 96368; 96374; 96375; 96376; C9113; J0696; J1815; J1940; J2250; J2272; J2354; J2405; J2543; J2704; J3010; J3475; J3480; J3490; J7042; J7050; J7120; J7168; J7620; J7626; J7999; P9016; P9047; P9048

== ENCOUNTER 2022-09-11 17:23 | Inpatient (IN) | payer MEDICARE, OTHER ==
[~2022-09-11 17:23] MED LIST: Iopamidol-370 76% 500 ML 1 ML ONE
[2022-09-11 18:11] LABS: #Eosinphils 0.2 thou/uL (0.0-0.7); #Lymphocytes 2.1 thou/uL (1.20-3.40); #Monocytes 0.5 thou/uL (0.11-0.59); #Neutrophils 2.8 thou/uL (1.40-6.50); %Basophils 0.6 % (0.0-1.0); %Eosinophils 4.3 % (0.0-10.0); %Lymphocytes 37.2 % (21.0-51.0); %Monocytes 9.2 % (0.0-10.0); %Neutrophils 48.7 % (42.0-75.0); Hemoglobin 10.1 g/dL (14.0-18.0); Mean Corpuscular HGB CONC 34.7 g/dL (32.0-36.0); Mean Corpuscular Hemoglobin 31.8 pg (27.0-31.0); Mean Corpuscular Volume 91.5 fl (78.0-98.0); Mean Platelet Volume 6.5 fL (7.4-10.4); Platelet Count 199 10x3/uL (130-400); RBC Distribution Width 13.2 % (11.5-14.5); Red Blood Cell (RBC) Count 3.18 mill/uL (4.70-6.10); White Blood Cell (WBC) Count 5.7 10x3/uL (4.8-10.8)
[2022-09-11 18:33] LABS: ALT (SGPT) 7 U/L (8-55); AST (SGOT) 17 U/L (5-34); Albumin 3.6 g/dL (3.4-4.8); Alkaline Phosphatase 85 U/L (40-110); Anion Gap 15 mmol/L (10-20); BUN (Urea Nitrogen) 28 mg/dL (8.4-25.7); Bilirubin, Total 0.6 mg/dL (0.2-1.2); Calc. Creatinine Clearance 0 mL/min (70-130); Calcium 9.1 mg/dL (7.8-10.44); Carbon Dioxide 17 mmol/L (23-31); Chloride 110 mmol/L (98-107); Estimated GFR 51; Globulin 3.1 g/dL (2.4-3.5); Glucose 117 mg/dL (83-110); Lipase 75 U/L (8-78); Protein, Total 6.7 g/dL (5.8-8.1); Sodium 138 mmol/L (136-145)
[2022-09-11] MEDS ORDERED: Famotidine/PF 20 mg/2ml Vial ONE (19:08)
[2022-09-11] MEDS ORDERED: diphenhydrAMINE 50 MG/ML VIAL ONE (19:08)
[2022-09-11] MEDS ORDERED: methylPREDNISolone Sod Succ 40 MG VIAL ONE (19:08)
[2022-09-11 21:12] LABS: Lactic Acid 1.4 mmol/L (0.5-2.2)
[2022-09-11] MEDS ORDERED: Acetaminophen 650 MG Suppository PR PRN (23:01)
[2022-09-11] MEDS ORDERED: Acetaminophen 325 MG TAB PO PRN (23:01)
[2022-09-11] MEDS ORDERED: Ondansetron ODT 4 MG TAB PO PRN (23:01)
[2022-09-11] MEDS ORDERED: Ondansetron PF 4 MG/2 ML Vial IVP PRN (23:01)
[2022-09-11 23:13] LABS: Troponin I 0.031 ng/mL (< 0.028)
[2022-09-12 00:15] VITALS: BMI 30.2
[2022-09-12] MEDS ORDERED: Pantoprazole 40 MG VIAL IVP SCH (00:45)
[2022-09-12] MEDS ORDERED: Dextrose 5% in Water 1,000 ML IV PRN (01:02)
[2022-09-12] MEDS ORDERED: HumaLOG 300 UNITS/3 ML VIAL SC PRN (01:02)
[2022-09-12] MEDS ORDERED: Dextrose 50% Abboject 50 ML SYRINGE SLOW IVP PRN (01:02)
[2022-09-12] MEDS: Sodium Chloride 0.9% 1,000 ML IV SCH ×2 (01:43→11:00)
[2022-09-12 01:51] LABS: Troponin I 0.031 ng/mL (< 0.028)
[2022-09-12 05:42] LABS: #Lymphocytes 0.4 thou/uL (1.20-3.40); #Monocytes 0.1 thou/uL (0.11-0.59); #Neutrophils 4.2 thou/uL (1.40-6.50); %Basophils 0.5 % (0.0-1.0); %Eosinophils 0.2 % (0.0-10.0); %Lymphocytes 8.8 % (21.0-51.0); %Monocytes 1.1 % (0.0-10.0); %Neutrophils 89.4 % (42.0-75.0); Hemoglobin 9.5 g/dL (14.0-18.0); Mean Corpuscular HGB CONC 34.4 g/dL (32.0-36.0); Mean Corpuscular Hemoglobin 31.9 pg (27.0-31.0); Mean Platelet Volume 6.6 fL (7.4-10.4); Platelet Count 182 10x3/uL (130-400); RBC Distribution Width 13.4 % (11.5-14.5); Red Blood Cell (RBC) Count 2.97 mill/uL (4.70-6.10); White Blood Cell (WBC) Count 4.7 10x3/uL (4.8-10.8)
[2022-09-12 06:04] LABS: Anion Gap 16 mmol/L (10-20); BUN (Urea Nitrogen) 30 mg/dL (8.4-25.7); Calc. Creatinine Clearance 58 mL/min (70-130); Calcium 8.6 mg/dL (7.8-10.44); Carbon Dioxide 15 mmol/L (23-31); Chloride 110 mmol/L (98-107); Estimated GFR 46; Glucose 369 mg/dL (83-110); Potassium 4.7 mmol/L (3.5-5.1); Sodium 136 mmol/L (136-145)
[2022-09-12] MEDS: HumaLOG 300 UNITS/3 ML VIAL SC PRN ×3 (06:13→17:40)
[2022-09-12] MEDS: Pantoprazole 40 MG VIAL IVP SCH (09:10)
[2022-09-12] MEDS: FLUoxetine HCl 10 MG CAP PO SCH (09:11)
[2022-09-12] MEDS: Cholecalciferol 1,000 UNITS (25 MCG) TAB PO SCH (09:11)
[2022-09-12] MEDS: Cyanocobalamin (Vitamin B-12) 1,000 MCG TAB PO SCH (09:11)
[2022-09-12] MEDS: Montelukast Sodium 10 mg Tablet PO SCH (09:11)
[2022-09-12] MEDS: Aspirin Chewable 81 MG TAB PO SCH (09:11)
[2022-09-12] MEDS ORDERED: Insulin NPH Human Isophane 100 UNIT/ML (10 ML VIAL) SC SCH (10:15)
[2022-09-12] MEDS: Ipratropium Bromide 2.5 ml Neb NEB SCH ×2 (12:47→19:11)
[2022-09-12] MEDS: Mometasone 200 MCG/Formoterol 5 MCG 120 PUFF INHALER INH SCH (19:29)
[2022-09-12] MEDS: Atorvastatin Calcium 40 MG TAB PO SCH (21:02)
[2022-09-12] MEDS: Insulin NPH Human Isophane 100 UNIT/ML (10 ML VIAL) SC SCH (21:03)
[2022-09-13] MEDS: Ipratropium Bromide 2.5 ml Neb NEB SCH ×4 (00:37→20:08)
[2022-09-13 05:09] LABS: SARS-CoV-2 NAA Rapid Test Not Detected (NotDetected)
[2022-09-13 06:24] LABS: #Eosinphils 0.3 thou/uL (0.0-0.7); #Lymphocytes 2.2 thou/uL (1.20-3.40); #Monocytes 0.3 thou/uL (0.11-0.59); %Basophils 0.6 % (0.0-1.0); %Eosinophils 4.9 % (0.0-10.0); %Monocytes 4.2 % (0.0-10.0); %Neutrophils 58.3 % (42.0-75.0); Hemoglobin 9.4 g/dL (14.0-18.0); Mean Corpuscular HGB CONC 33.9 g/dL (32.0-36.0); Mean Corpuscular Volume 94.5 fl (78.0-98.0); Mean Platelet Volume 6.8 fL (7.4-10.4); Platelet Count 180 10x3/uL (130-400); RBC Distribution Width 13.6 % (11.5-14.5); Red Blood Cell (RBC) Count 2.92 mill/uL (4.70-6.10); White Blood Cell (WBC) Count 6.9 10x3/uL (4.8-10.8)
[2022-09-13] MEDS: Mometasone 200 MCG/Formoterol 5 MCG 120 PUFF INHALER INH SCH ×2 (06:51→20:09)
[2022-09-13 06:52] LABS: ALT (SGPT) Less than 7 U/L (8-55); AST (SGOT) 9 U/L (5-34); Albumin 3.3 g/dL (3.4-4.8); Alkaline Phosphatase 72 U/L (40-110); Anion Gap 11 mmol/L (10-20); BUN (Urea Nitrogen) 21 mg/dL (8.4-25.7); Bilirubin, Total 0.4 mg/dL (0.2-1.2); Calc. Creatinine Clearance 68 mL/min (70-130); Calcium 8.6 mg/dL (7.8-10.44); Carbon Dioxide 21 mmol/L (23-31); Chloride 112 mmol/L (98-107); Estimated GFR 56; Globulin 2.8 g/dL (2.4-3.5); Glucose 134 mg/dL (83-110); Magnesium 1.7 mg/dL (1.6-2.6); Potassium 4.2 mmol/L (3.5-5.1); Protein, Total 6.1 g/dL (5.8-8.1); Sodium 140 mmol/L (136-145)
[2022-09-13] MEDS ORDERED: Magnesium Sulfate In Water 4 GM in Premix Bag 1 BAG IVPB SCH (08:30)
[2022-09-13] MEDS: FLUoxetine HCl 10 MG CAP PO SCH (08:50)
[2022-09-13] MEDS: Montelukast Sodium 10 mg Tablet PO SCH (08:54)
[2022-09-13] MEDS: Cyanocobalamin (Vitamin B-12) 1,000 MCG TAB PO SCH (08:54)
[2022-09-13] MEDS: Cholecalciferol 1,000 UNITS (25 MCG) TAB PO SCH (08:54)
[2022-09-13] MEDS: Aspirin Chewable 81 MG TAB PO SCH (08:54)
[2022-09-13] MEDS: Pantoprazole 40 MG VIAL IVP SCH (08:55)
[2022-09-13] MEDS: Insulin NPH Human Isophane 100 UNIT/ML (10 ML VIAL) SC SCH ×2 (08:55→21:30)
[2022-09-13] MEDS: Atorvastatin Calcium 40 MG TAB PO SCH (21:30)
[2022-09-14] MEDS: Ipratropium Bromide 2.5 ml Neb NEB SCH ×5 (00:28→23:49)
[2022-09-14 06:13] LABS: #Eosinphils 0.4 thou/uL (0.0-0.7); #Lymphocytes 1.5 thou/uL (1.20-3.40); #Monocytes 0.5 thou/uL (0.11-0.59); #Neutrophils 3.3 thou/uL (1.40-6.50); %Basophils 0.2 % (0.0-1.0); %Eosinophils 7.4 % (0.0-10.0); %Lymphocytes 25.7 % (21.0-51.0); %Neutrophils 58.7 % (42.0-75.0); Hemoglobin 9.7 g/dL (14.0-18.0); Mean Platelet Volume 6.7 fL (7.4-10.4); Platelet Count 185 10x3/uL (130-400); RBC Distribution Width 13.3 % (11.5-14.5); Red Blood Cell (RBC) Count 3.04 mill/uL (4.70-6.10); White Blood Cell (WBC) Count 5.7 10x3/uL (4.8-10.8)
[2022-09-14 06:47] LABS: ALT (SGPT) 8 U/L (8-55); AST (SGOT) 9 U/L (5-34); Albumin 3.2 g/dL (3.4-4.8); Alkaline Phosphatase 78 U/L (40-110); Anion Gap 12 mmol/L (10-20); BUN (Urea Nitrogen) 19 mg/dL (8.4-25.7); Bilirubin, Total 0.7 mg/dL (0.2-1.2); Calc. Creatinine Clearance 78 mL/min (70-130); Calcium 8.7 mg/dL (7.8-10.44); Carbon Dioxide 21 mmol/L (23-31); Chloride 112 mmol/L (98-107); Estimated GFR 65; Globulin 2.8 g/dL (2.4-3.5); Glucose 158 mg/dL (83-110); Magnesium 2.1 mg/dL (1.6-2.6); Potassium 4.4 mmol/L (3.5-5.1); Sodium 141 mmol/L (136-145)
[2022-09-14] MEDS: Mometasone 200 MCG/Formoterol 5 MCG 120 PUFF INHALER INH SCH ×2 (07:43→20:01)
[2022-09-14] MEDS ORDERED: Regadenoson 0.4 MG/5 ML SYRINGE ONE (11:18)
[2022-09-14] MEDS ORDERED: FLUoxetine HCl 10 MG CAP PO SCH (13:15)
[2022-09-14] MEDS ORDERED: Montelukast Sodium 10 mg Tablet PO SCH (13:15)
[2022-09-14] MEDS ORDERED: Cyanocobalamin (Vitamin B-12) 1,000 MCG TAB PO SCH (13:15)
[2022-09-14] MEDS ORDERED: Aspirin Chewable 81 MG TAB PO SCH (13:15)
[2022-09-14] MEDS ORDERED: Cholecalciferol 1,000 UNITS (25 MCG) TAB PO SCH (13:15)
[2022-09-14] MEDS: FLUoxetine HCl 10 MG CAP PO SCH (13:25)
[2022-09-14] MEDS: Insulin NPH Human Isophane 100 UNIT/ML (10 ML VIAL) SC SCH ×3 (13:25→21:00)
[2022-09-14] MEDS: Cyanocobalamin (Vitamin B-12) 1,000 MCG TAB PO SCH (13:25)
[2022-09-14] MEDS: Aspirin Chewable 81 MG TAB PO SCH (13:25)
[2022-09-14] MEDS: Cholecalciferol 1,000 UNITS (25 MCG) TAB PO SCH (13:25)
[2022-09-14] MEDS: Pantoprazole 40 MG VIAL IVP SCH ×3 (13:26→16:06)
[2022-09-14] MEDS: Montelukast Sodium 10 mg Tablet PO SCH (13:26)
[2022-09-14] MEDS: HumaLOG 300 UNITS/3 ML VIAL SC PRN ×2 (13:44→17:34)
[2022-09-14] MEDS: Niacin 500 MG TAB PO SCH (21:00)
[2022-09-14] MEDS: Atorvastatin Calcium 40 MG TAB PO SCH (21:00)
[2022-09-15 06:26] LABS: #Eosinphils 0.3 thou/uL (0.0-0.7); #Lymphocytes 1.4 thou/uL (1.20-3.40); #Monocytes 0.4 thou/uL (0.11-0.59); #Neutrophils 2.6 thou/uL (1.40-6.50); %Basophils 0.3 % (0.0-1.0); %Eosinophils 7.1 % (0.0-10.0); %Lymphocytes 29.9 % (21.0-51.0); %Monocytes 7.7 % (0.0-10.0); Hemoglobin 10.1 g/dL (14.0-18.0); Mean Corpuscular Hemoglobin 31.5 pg (27.0-31.0); Mean Corpuscular Volume 92.5 fl (78.0-98.0); Mean Platelet Volume 6.5 fL (7.4-10.4); Platelet Count 170 10x3/uL (130-400); RBC Distribution Width 13.2 % (11.5-14.5); Red Blood Cell (RBC) Count 3.21 mill/uL (4.70-6.10); White Blood Cell (WBC) Count 4.6 10x3/uL (4.8-10.8)
[2022-09-15] MEDS: HumaLOG 300 UNITS/3 ML VIAL SC PRN ×3 (06:34→18:07)
[2022-09-15 06:49] LABS: ALT (SGPT) 8 U/L (8-55); AST (SGOT) 9 U/L (5-34); Albumin 3.3 g/dL (3.4-4.8); Alkaline Phosphatase 83 U/L (40-110); Anion Gap 10 mmol/L (10-20); BUN (Urea Nitrogen) 15 mg/dL (8.4-25.7); Bilirubin, Total 0.9 mg/dL (0.2-1.2); Calc. Creatinine Clearance 80 mL/min (70-130); Calcium 8.9 mg/dL (7.8-10.44); Carbon Dioxide 22 mmol/L (23-31); Chloride 109 mmol/L (98-107); Estimated GFR 67; Glucose 177 mg/dL (83-110); Magnesium 1.9 mg/dL (1.6-2.6); Potassium 4.2 mmol/L (3.5-5.1); Protein, Total 6.3 g/dL (5.8-8.1); Sodium 137 mmol/L (136-145)
[2022-09-15] MEDS: Ipratropium Bromide 2.5 ml Neb NEB SCH ×3 (07:27→19:50)
[2022-09-15] MEDS: Mometasone 200 MCG/Formoterol 5 MCG 120 PUFF INHALER INH SCH ×2 (07:27→19:52)
[2022-09-15] MEDS ORDERED: Magnesium 2 GM/50 ML(in water) 2 GM in Premix Bag 1 BAG IVPB SCH (08:45)
[2022-09-15] MEDS ORDERED: FLU VACC QS2022-23(65YR UP)/PF 240 MCG/0.7 ML SYRINGE IM ONE (09:00)
[2022-09-15] MEDS: Aspirin Chewable 81 MG TAB PO SCH (09:26)
[2022-09-15] MEDS: Cholecalciferol 1,000 UNITS (25 MCG) TAB PO SCH (09:27)
[2022-09-15] MEDS: Montelukast Sodium 10 mg Tablet PO SCH (09:27)
[2022-09-15] MEDS: FLUoxetine HCl 10 MG CAP PO SCH (09:27)
[2022-09-15] MEDS: Cyanocobalamin (Vitamin B-12) 1,000 MCG TAB PO SCH (09:27)
[2022-09-15] MEDS: Niacin 500 MG TAB PO SCH ×2 (09:27→21:27)
[2022-09-15] MEDS: Insulin NPH Human Isophane 100 UNIT/ML (10 ML VIAL) SC SCH ×2 (09:28→21:27)
[2022-09-15] MEDS: Atorvastatin Calcium 40 MG TAB PO SCH (21:27)
[2022-09-16] MEDS: Ipratropium Bromide 2.5 ml Neb NEB SCH ×3 (00:18→13:34)
[2022-09-16 05:39] LABS: ALT (SGPT) 7 U/L (8-55); AST (SGOT) 7 U/L (5-34); Albumin 3.2 g/dL (3.4-4.8); Alkaline Phosphatase 74 U/L (40-110); Anion Gap 11 mmol/L (10-20); BUN (Urea Nitrogen) 18 mg/dL (8.4-25.7); Bilirubin, Total 0.8 mg/dL (0.2-1.2); Calc. Creatinine Clearance 66 mL/min (70-130); Calcium 8.4 mg/dL (7.8-10.44); Carbon Dioxide 20 mmol/L (23-31); Chloride 109 mmol/L (98-107); Estimated GFR 54; Globulin 2.6 g/dL (2.4-3.5); Glucose 192 mg/dL (83-110); Protein, Total 5.8 g/dL (5.8-8.1); Sodium 136 mmol/L (136-145)
[2022-09-16] MEDS: HumaLOG 300 UNITS/3 ML VIAL SC PRN ×2 (06:27→13:12)
[2022-09-16] MEDS: Mometasone 200 MCG/Formoterol 5 MCG 120 PUFF INHALER INH SCH (07:21)
[2022-09-16] MEDS ORDERED: Magnesium Oxide 400 MG TAB PO SCH (09:00)
[2022-09-16] MEDS: Niacin 500 MG TAB PO SCH (09:26)
[2022-09-16] MEDS: FLUoxetine HCl 10 MG CAP PO SCH (09:27)
[2022-09-16] MEDS: Montelukast Sodium 10 mg Tablet PO SCH (09:27)
[2022-09-16] MEDS: Cholecalciferol 1,000 UNITS (25 MCG) TAB PO SCH (09:27)
[2022-09-16] MEDS: Insulin NPH Human Isophane 100 UNIT/ML (10 ML VIAL) SC SCH (09:29)
[2022-09-16] MEDS: Aspirin Chewable 81 MG TAB PO SCH (09:30)
[2022-09-16] MEDS: Cyanocobalamin (Vitamin B-12) 1,000 MCG TAB PO SCH (09:30)
[2022-09-16 12:22] VITALS: TEMP 97.4
[2022-09-16 12:45] VITALS: BP 98/54
== END 2022-09-16 15:39 | disposition home health service (06) | DRG 640 ==
LOC: ERS 17:23 → NEURO 22:20 → OBSVTOIN 09-12 16:38
PROVIDERS: ADMIT Student in an Organized Health Care Education/Training Program; ATTEND Family Medicine
DX: E86.0 Dehydration (principal); K22.6 Gastro-esophageal laceration-hemorrhage syndrome; I47.29 Other ventricular tachycardia; N17.9 Acute kidney failure, unspecified; I95.1 Orthostatic hypotension; Z66 Do not resuscitate; J44.9 Chronic obstructive pulmonary disease, unspecified; E78.5 Hyperlipidemia, unspecified; I25.10 Atherosclerotic heart disease of native coronary artery without angina pectoris; E11.22 Type 2 diabetes mellitus with diabetic chronic kidney disease; I25.2 Old myocardial infarction; Z91.041 Radiographic dye allergy status; Z79.82 Long term (current) use of aspirin; Z79.51 Long term (current) use of inhaled steroids; Z79.899 Other long term (current) drug therapy; Z95.2 Presence of prosthetic heart valve
CPT/HCPCS: 36415; 36416; 71045; 71275; 74177; 78452; 80048; 80053; 83605; 83690; 83735; 83880; 84484; 85025; 86850; 86900; 86901; 93005; 93010; 93017; 93306; 94640; 96361; 96374; 96375; 96376; A9500; C9113; G0378; J1200; J1815; J2785; J2920; J3475; J7050; Q9967; S0028; U0002; U0003; U0005

== ENCOUNTER 2023-05-24 10:11 | Inpatient (IN) | payer OTHER, MEDICARE ==
[2023-05-24 10:59] LABS: #Eosinphils 0.3 thou/uL (0.0-0.7); #Monocytes 0.2 thou/uL (0.11-0.59); #Neutrophils 7.5 thou/uL (1.40-6.50); %Basophils 0.1 % (0.0-1.0); %Eosinophils 3.6 % (0.0-10.0); %Lymphocytes 8.4 % (21.0-51.0); %Monocytes 2.5 % (0.0-10.0); %Neutrophils 85.2 % (42.0-75.0); Hematocrit 35.4 % (42.0-52.0); Hemoglobin 11.4 g/dL (14.0-18.0); Mean Corpuscular HGB CONC 32.2 g/dL (32.0-36.0); Mean Corpuscular Hemoglobin 29.5 pg (27.0-31.0); Mean Corpuscular Volume 91.5 fl (78.0-98.0); Mean Platelet Volume 8.7 fL (7.4-10.4); Platelet Count 189 10x3/uL (130-400); RBC Distribution Width 14.5 % (11.5-14.5); Red Blood Cell (RBC) Count 3.87 mill/uL (4.70-6.10); White Blood Cell (WBC) Count 8.9 10x3/uL (4.8-10.8)
[2023-05-24 11:34] LABS: ALT (SGPT) 12 U/L (8-55); AST (SGOT) 13 U/L (5-34); Alkaline Phosphatase 86 U/L (40-110); Anion Gap 17 mmol/L (10-20); BUN (Urea Nitrogen) 26 mg/dL (8.4-25.7); Bilirubin, Total 0.5 mg/dL (0.2-1.2); Calc. Creatinine Clearance 0 mL/min (70-130); Calcium 8.5 mg/dL (7.8-10.44); Carbon Dioxide 21 mmol/L (23-31); Chloride 108 mmol/L (98-107); Estimated GFR 47; Globulin 2.1 g/dL (2.4-3.5); Glucose 202 mg/dL (83-110); Magnesium 2.4 mg/dL (1.6-2.6); Potassium 4.6 mmol/L (3.5-5.1); Protein, Total 6.1 g/dL (5.8-8.1); Sodium 141 mmol/L (136-145)
[2023-05-24] MEDS ORDERED: cefTRIAXone (ROCEPHIN) 2 GM VIAL ONE (11:35)
[2023-05-24] MEDS ORDERED: Azithromycin 500 MG VIAL ONE (12:03)
[2023-05-24] MEDS ORDERED: diphenhydrAMINE 50 MG/ML VIAL ONE (13:03)
[2023-05-24] MEDS ORDERED: Famotidine/PF 20 mg/2ml Vial ONE (13:03)
[2023-05-24] MEDS ORDERED: methylPREDNISolone Sod Succ 40 MG VIAL IVP SCH (14:00)
[2023-05-24] MEDS ORDERED: Water For Inject, Bacteriostat 30 ML ONE (14:03)
[2023-05-24] MEDS ORDERED: Aspirin Chewable 81 MG TAB ONE (14:43)
[2023-05-24 15:11] LABS: Troponin I 0.059 ng/mL (< 0.028)
[2023-05-24] MEDS ORDERED: Ipratropium/Albuterol 3 ML NEB NEB PRN (15:31)
[2023-05-24] MEDS ORDERED: Ondansetron PF 4 MG/2 ML Vial IVP PRN (15:31)
[2023-05-24] MEDS ORDERED: Glucagon 1 MG/ML KIT IM PRN (16:03)
[2023-05-24] MEDS ORDERED: Dextrose 5% in Water 1,000 ML IV PRN (16:03)
[2023-05-24] MEDS ORDERED: Dextrose 50% Abboject 50 ML SYRINGE SLOW IVP PRN (16:03)
[2023-05-24 20:08] VITALS: BMI 4569.5
[2023-05-24] MEDS ORDERED: LevoFLOXacin 750 mg/D5W 750 MG in Premix 1 BAG IVPB SCH (21:00)
[2023-05-24] MEDS: methylPREDNISolone Sod Succ 40 MG VIAL IVP SCH (21:20)
[2023-05-24] MEDS: Mometasone/Formoterol 200/5 60 PUFF INH SCH (21:20)
[2023-05-24 21:25] LABS: SARS-CoV-2 NAA Rapid Test Not Detected (NotDetected)
[2023-05-24] MEDS: Heparin 5,000 UNITS/ML VIAL SC SCH (22:10)
[2023-05-24] MEDS: HumaLOG 300 UNITS/3 ML VIAL SC PRN (22:30)
[2023-05-25] MEDS: methylPREDNISolone Sod Succ 40 MG VIAL IVP SCH ×5 (00:48→23:40)
[2023-05-25 04:46] LABS: #Monocytes 0.1 thou/uL (0.11-0.59); #Neutrophils 8.4 thou/uL (1.40-6.50); %Monocytes 1.3 % (0.0-10.0); Hematocrit 33.3 % (42.0-52.0); Mean Corpuscular Hemoglobin 29.6 pg (27.0-31.0); Mean Corpuscular Volume 89.8 fl (78.0-98.0); Platelet Count 181 10x3/uL (130-400); RBC Distribution Width 14.3 % (11.5-14.5); Red Blood Cell (RBC) Count 3.71 mill/uL (4.70-6.10); White Blood Cell (WBC) Count 9.1 10x3/uL (4.8-10.8)
[2023-05-25 05:13] LABS: Anion Gap 17 mmol/L (10-20); BUN (Urea Nitrogen) 32 mg/dL (8.4-25.7); Calc. Creatinine Clearance 61 mL/min (70-130); Calcium 8.9 mg/dL (7.8-10.44); Carbon Dioxide 19 mmol/L (23-31); Chloride 107 mmol/L (98-107); Estimated GFR 46; Glucose 274 mg/dL (83-110); Potassium 4.7 mmol/L (3.5-5.1); Sodium 138 mmol/L (136-145)
[2023-05-25] MEDS: HumaLOG 300 UNITS/3 ML VIAL SC PRN ×4 (05:14→20:44)
[2023-05-25] MEDS: Mometasone/Formoterol 200/5 60 PUFF INH SCH ×2 (07:39→19:20)
[2023-05-25] MEDS: Heparin 5,000 UNITS/ML VIAL SC SCH (09:28)
[2023-05-25] MEDS ORDERED: Furosemide 40 MG TAB PO SCH (10:00)
[2023-05-25] MEDS ORDERED: Atorvastatin Calcium 40 MG TAB PO SCH (10:15)
[2023-05-25] MEDS ORDERED: Insulin Glargine 30 UNITS/0.3 ML VIAL SC SCH (10:15)
[2023-05-25] MEDS ORDERED: Aspirin 81 mg Enteric Coated Tablet PO SCH (10:15)
[2023-05-25] MEDS: Atorvastatin Calcium 40 MG TAB PO SCH (20:44)
[2023-05-26] MEDS: methylPREDNISolone Sod Succ 40 MG VIAL IVP SCH (05:14)
[2023-05-26] MEDS: HumaLOG 300 UNITS/3 ML VIAL SC PRN ×4 (06:03→21:39)
[2023-05-26 06:37] LABS: Anion Gap 16 mmol/L (10-20); BUN (Urea Nitrogen) 42 mg/dL (8.4-25.7); Calc. Creatinine Clearance 51 mL/min (70-130); Calcium 8.9 mg/dL (7.8-10.44); Carbon Dioxide 20 mmol/L (23-31); Chloride 105 mmol/L (98-107); Estimated GFR 37; Glucose 317 mg/dL (83-110); Potassium 5.2 mmol/L (3.5-5.1); Sodium 136 mmol/L (136-145)
[2023-05-26] MEDS: Mometasone/Formoterol 200/5 60 PUFF INH SCH ×2 (07:54→18:41)
[2023-05-26] MEDS ORDERED: LevoFLOXacin 250 MG TAB PO SCH (08:00)
[2023-05-26] MEDS ORDERED: Insulin Glargine 30 UNITS/0.3 ML VIAL SC SCH (09:00)
[2023-05-26] MEDS: Cholecalciferol 1,000 UNITS (25 MCG) TAB PO SCH (09:09)
[2023-05-26] MEDS: Aspirin 81 mg Enteric Coated Tablet PO SCH (09:09)
[2023-05-26] MEDS: Insulin Glargine 30 UNITS/0.3 ML VIAL SC SCH (09:10)
[2023-05-26] MEDS: Atorvastatin Calcium 40 MG TAB PO SCH (20:34)
[2023-05-27 04:41] LABS: Anion Gap 15 mmol/L (10-20); BUN (Urea Nitrogen) 44 mg/dL (8.4-25.7); Calc. Creatinine Clearance 53 mL/min (70-130); Calcium 8.6 mg/dL (7.8-10.44); Carbon Dioxide 24 mmol/L (23-31); Chloride 107 mmol/L (98-107); Estimated GFR 39; Glucose 161 mg/dL (83-110); Potassium 4.3 mmol/L (3.5-5.1); Sodium 142 mmol/L (136-145)
[2023-05-27] MEDS: LevoFLOXacin 250 MG TAB PO SCH (04:55)
[2023-05-27] MEDS: HumaLOG 300 UNITS/3 ML VIAL SC PRN ×2 (06:11→17:45)
[2023-05-27] MEDS: Mometasone/Formoterol 200/5 60 PUFF INH SCH ×2 (08:34→19:35)
[2023-05-27] MEDS: Aspirin 81 mg Enteric Coated Tablet PO SCH (09:09)
[2023-05-27] MEDS: Cholecalciferol 1,000 UNITS (25 MCG) TAB PO SCH (09:09)
[2023-05-27] MEDS: Insulin Glargine 30 UNITS/0.3 ML VIAL SC SCH (09:10)
[2023-05-27] MEDS ORDERED: dilTIAZem 25 MG/5 ML VIAL SLOW IVP SCH (10:15)
[2023-05-27] MEDS ORDERED: Digoxin 0.5 MG/2 ML AMP SLOW IVP SCH (13:15)
[2023-05-27] MEDS ORDERED: dilTIAZem 125 MG in Sodium Chloride 0.9% 100 ML IVPB SCH (13:15)
[2023-05-27] MEDS: Atorvastatin Calcium 40 MG TAB PO SCH (21:47)
[2023-05-27] MEDS: Amiodarone 450 MG in Dextrose 5% in Water 250 ML IVPB SCH ×2 (21:58→22:43)
[2023-05-27 22:50] LABS: ALT (SGPT) 12 U/L (8-55); AST (SGOT) 9 U/L (5-34); Albumin 3.8 g/dL (3.4-4.8); Alkaline Phosphatase 69 U/L (40-110); Bilirubin, Direct 0.3 mg/dL (0.1-0.3); Bilirubin, Total 0.5 mg/dL (0.2-1.2); Protein, Total 6.1 g/dL (5.8-8.1)
[2023-05-28] MEDS: LevoFLOXacin 250 MG TAB PO SCH (06:22)
[2023-05-28] MEDS: Mometasone/Formoterol 200/5 60 PUFF INH SCH ×2 (07:06→18:33)
[2023-05-28] MEDS: Aspirin 81 mg Enteric Coated Tablet PO SCH (09:02)
[2023-05-28] MEDS: Cholecalciferol 1,000 UNITS (25 MCG) TAB PO SCH (09:02)
[2023-05-28] MEDS: Insulin Glargine 30 UNITS/0.3 ML VIAL SC SCH (09:02)
[2023-05-28] MEDS: HumaLOG 300 UNITS/3 ML VIAL SC PRN ×3 (09:03→17:04)
[2023-05-28] MEDS: Amiodarone 450 MG in Dextrose 5% in Water 250 ML IVPB SCH ×2 (09:08→23:44)
[2023-05-28] MEDS: Atorvastatin Calcium 40 MG TAB PO SCH (20:35)
[2023-05-29] MEDS: LevoFLOXacin 250 MG TAB PO SCH (05:48)
[2023-05-29] MEDS: Mometasone/Formoterol 200/5 60 PUFF INH SCH ×2 (07:59→19:05)
[2023-05-29] MEDS: Insulin Glargine 30 UNITS/0.3 ML VIAL SC SCH (08:54)
[2023-05-29] MEDS: Aspirin 81 mg Enteric Coated Tablet PO SCH (08:54)
[2023-05-29] MEDS: Cholecalciferol 1,000 UNITS (25 MCG) TAB PO SCH (08:54)
[2023-05-29] MEDS: Amiodarone 450 MG in Dextrose 5% in Water 250 ML IVPB SCH (14:41)
[2023-05-29] MEDS: Atorvastatin Calcium 40 MG TAB PO SCH (20:00)
[2023-05-30 04:41] LABS: Hematocrit 34.3 % (42.0-52.0); Hemoglobin 11.5 g/dL (14.0-18.0); Mean Corpuscular HGB CONC 33.5 g/dL (32.0-36.0); Mean Corpuscular Hemoglobin 29.1 pg (27.0-31.0); Mean Corpuscular Volume 86.8 fl (78.0-98.0); Mean Platelet Volume 9.4 fL (7.4-10.4); Platelet Count 193 10x3/uL (130-400); RBC Distribution Width 13.5 % (11.5-14.5); Red Blood Cell (RBC) Count 3.95 mill/uL (4.70-6.10); White Blood Cell (WBC) Count 9.7 10x3/uL (4.8-10.8)
[2023-05-30 05:00] LABS: ALT (SGPT) 11 U/L (8-55); AST (SGOT) 8 U/L (5-34); Albumin 3.2 g/dL (3.4-4.8); Alkaline Phosphatase 63 U/L (40-110); Anion Gap 11 mmol/L (10-20); BUN (Urea Nitrogen) 27 mg/dL (8.4-25.7); Bilirubin, Total 0.9 mg/dL (0.2-1.2); Calc. Creatinine Clearance 60 mL/min (70-130); Calcium 8.2 mg/dL (7.8-10.44); Carbon Dioxide 22 mmol/L (23-31); Chloride 106 mmol/L (98-107); Estimated GFR 47; Globulin 2.4 g/dL (2.4-3.5); Glucose 162 mg/dL (83-110); Potassium 4.4 mmol/L (3.5-5.1); Protein, Total 5.6 g/dL (5.8-8.1); Sodium 135 mmol/L (136-145)
[2023-05-30] MEDS: LevoFLOXacin 250 MG TAB PO SCH (05:34)
[2023-05-30] MEDS: Mometasone/Formoterol 200/5 60 PUFF INH SCH ×2 (07:13→19:23)
[2023-05-30] MEDS: Amiodarone 200 MG TAB PO SCH ×2 (09:17→20:10)
[2023-05-30] MEDS: Aspirin 81 mg Enteric Coated Tablet PO SCH (09:17)
[2023-05-30] MEDS: Cholecalciferol 1,000 UNITS (25 MCG) TAB PO SCH (09:17)
[2023-05-30] MEDS: Insulin Glargine 30 UNITS/0.3 ML VIAL SC SCH (09:18)
[2023-05-30] MEDS: Atorvastatin Calcium 40 MG TAB PO SCH (20:10)
[2023-05-30] MEDS: HumaLOG 300 UNITS/3 ML VIAL SC PRN (21:13)
[2023-05-30] MEDS: Acetaminophen 325 MG TAB PO PRN (21:19)
[2023-05-31] MEDS: LevoFLOXacin 250 MG TAB PO SCH (06:11)
[2023-05-31] MEDS: HumaLOG 300 UNITS/3 ML VIAL SC PRN ×2 (06:14→11:54)
[2023-05-31] MEDS: Mometasone/Formoterol 200/5 60 PUFF INH SCH ×2 (07:02→19:51)
[2023-05-31] MEDS: Aspirin 81 mg Enteric Coated Tablet PO SCH (08:39)
[2023-05-31] MEDS: Insulin Glargine 30 UNITS/0.3 ML VIAL SC SCH (08:39)
[2023-05-31] MEDS: Amiodarone 200 MG TAB PO SCH ×2 (08:39→20:32)
[2023-05-31] MEDS: Cholecalciferol 1,000 UNITS (25 MCG) TAB PO SCH (08:39)
[2023-05-31] MEDS: Acetaminophen 325 MG TAB PO PRN (13:49)
[2023-05-31] MEDS ORDERED: Morphine 2 MG/ML VIAL SLOW IVP PRN (14:25)
[2023-05-31] MEDS: Atorvastatin Calcium 40 MG TAB PO SCH (20:32)
[2023-06-01] MEDS: Acetaminophen 325 MG TAB PO PRN (01:35)
[2023-06-01] MEDS: Mometasone/Formoterol 200/5 60 PUFF INH SCH ×2 (07:29→19:03)
[2023-06-01] MEDS: Insulin Glargine 30 UNITS/0.3 ML VIAL SC SCH (09:05)
[2023-06-01] MEDS: Amiodarone 200 MG TAB PO SCH ×2 (09:06→20:48)
[2023-06-01] MEDS: Cholecalciferol 1,000 UNITS (25 MCG) TAB PO SCH (09:06)
[2023-06-01] MEDS: Aspirin 81 mg Enteric Coated Tablet PO SCH (09:06)
[2023-06-01] MEDS: HYDROcodone/Acetaminophen 7.5/325 mg Tablet PO PRN ×2 (17:37→21:42)
[2023-06-01] MEDS: Atorvastatin Calcium 40 MG TAB PO SCH (20:47)
[2023-06-01] MEDS: HumaLOG 300 UNITS/3 ML VIAL SC PRN (20:57)
[2023-06-02 04:12] LABS: Hematocrit 33.4 % (42.0-52.0); Hemoglobin 11.1 g/dL (14.0-18.0); Mean Corpuscular HGB CONC 33.2 g/dL (32.0-36.0); Mean Corpuscular Hemoglobin 29.3 pg (27.0-31.0); Mean Corpuscular Volume 88.1 fl (78.0-98.0); Mean Platelet Volume 9.2 fL (7.4-10.4); Platelet Count 198 10x3/uL (130-400); RBC Distribution Width 13.6 % (11.5-14.5); Red Blood Cell (RBC) Count 3.79 mill/uL (4.70-6.10); White Blood Cell (WBC) Count 7.1 10x3/uL (4.8-10.8)
[2023-06-02 04:45] LABS: Anion Gap 10 mmol/L (10-20); BUN (Urea Nitrogen) 24 mg/dL (8.4-25.7); Calc. Creatinine Clearance 61 mL/min (70-130); Calcium 8.5 mg/dL (7.8-10.44); Carbon Dioxide 25 mmol/L (23-31); Chloride 104 mmol/L (98-107); Estimated GFR 48; Glucose 153 mg/dL (83-110); Potassium 4.3 mmol/L (3.5-5.1); Sodium 135 mmol/L (136-145)
[2023-06-02] MEDS: HumaLOG 300 UNITS/3 ML VIAL SC PRN (06:49)
[2023-06-02] MEDS: Mometasone/Formoterol 200/5 60 PUFF INH SCH (07:41)
[2023-06-02] MEDS: Aspirin 81 mg Enteric Coated Tablet PO SCH (09:29)
[2023-06-02] MEDS: Amiodarone 200 MG TAB PO SCH (09:29)
[2023-06-02] MEDS: Cholecalciferol 1,000 UNITS (25 MCG) TAB PO SCH (09:29)
[2023-06-02] MEDS: Insulin Glargine 30 UNITS/0.3 ML VIAL SC SCH (09:30)
[2023-06-02 12:25] VITALS: BP 107/60; TEMP 97.5
[2023-06-02] MEDS ORDERED: Amiodarone 200 MG TAB PO SCH (15:00)
== END 2023-06-02 14:30 | disposition home or self-care (01) | DRG 189 ==
LOC: ERS 10:11 → SUATTDRO 10:11 → 2NO 16:55
PROVIDERS: ADMIT Internal Medicine; ATTEND Internal Medicine
DX: J96.01 Acute respiratory failure with hypoxia (principal); I21.A1 Myocardial infarction type 2; J44.1 Chronic obstructive pulmonary disease with (acute) exacerbation; N17.9 Acute kidney failure, unspecified; E11.9 Type 2 diabetes mellitus without complications; I25.10 Atherosclerotic heart disease of native coronary artery without angina pectoris; I50.9 Heart failure, unspecified; N18.30 Chronic kidney disease, stage 3 unspecified; E87.5 Hyperkalemia; I48.0 Paroxysmal atrial fibrillation; E66.9 Obesity, unspecified; E78.5 Hyperlipidemia, unspecified; Z20.822 Contact with and (suspected) exposure to COVID-19; T80.89XA Other complications following infusion, transfusion and therapeutic injection, initial encounter; E11.22 Type 2 diabetes mellitus with diabetic chronic kidney disease; Z98.890 Other specified postprocedural states; Z95.2 Presence of prosthetic heart valve; Z91.041 Radiographic dye allergy status; Z79.51 Long term (current) use of inhaled steroids; Z79.899 Other long term (current) drug therapy; Z68.30 Body mass index [BMI] 30.0-30.9, adult
CPT/HCPCS: 36415; 36416; 71045; 71275; 80048; 80053; 80076; 83605; 83735; 83880; 84145; 84443; 84484; 85025; 85027; 87040; 87070; 87205; 87633; 93005; 93010; 93306; 96365; 96367; 96375; 97139; J0282; J0456; J0696; J1160; J1200; J1644; J1650; J1815; J1956; J2405; J2920; J3490; J7070; S0028

== ENCOUNTER 2024-02-09 10:54 | Emergency (ER) | payer OTHER ==
[2024-02-09 12:07] LABS: Actual Bicarbonate (HCO3v) 23.7 mEq/L (22-28); Analyzer IN Cardio ER; Base Excess 0.9 mEq/L (-2.0 to +3.0); Calcium, Ionized (venous) 1.15 mmol/L (1.16-1.32); Chloride (VBG) 103 mmol/L (98-106); Potassium (VBG) 4.46 mmol/L (3.70-5.30); Sodium 141 mmol/L (133-146)
[2024-02-09 12:16] LABS: #Basophils Less than 0.03 10x3/uL (0.0-0.2); %Basophils 0.3 % (0.0-1.0); %Eosinophils 3.4 % (0.0-10.0); %Monocytes 6.3 % (0.0-10.0); %Neutrophils 69.7 % (42.0-75.0); Hematocrit 37.4 % (42.0-52.0); Hemoglobin 12.7 g/dL (14.0-18.0); Mean Corpuscular Hemoglobin 28.8 pg (27.0-31.0); Mean Corpuscular Volume 84.8 fL (78.0-98.0); Mean Platelet Volume 8.9 fL (7.4-10.4); Platelet Count 231 10x3/uL (130-400); RBC Distribution Width 14.7 % (11.5-14.5); Red Blood Cell (RBC) Count 4.41 mill/uL (4.70-6.10)
[2024-02-09 12:30] LABS: ALT (SGPT) 12 U/L (8-55); AST (SGOT) 13 U/L (5-34); Albumin 3.4 g/dL (3.4-4.8); Alkaline Phosphatase 102 U/L (40-110); Anion Gap 15 mmol/L (10-20); BUN (Urea Nitrogen) 49 mg/dL (8.4-25.7); Bilirubin, Total 0.5 mg/dL (0.2-1.2); Calc. Creatinine Clearance 0 mL/min (70-130); Calcium 9.2 mg/dL (7.8-10.44); Carbon Dioxide 23 mmol/L (23-31); Chloride 105 mmol/L (98-107); Estimated GFR 37; Globulin 3.1 g/dL (2.4-3.5); Glucose 103 mg/dL (83-110); Magnesium 2.3 mg/dL (1.6-2.6); Potassium 4.1 mmol/L (3.5-5.1); Protein, Total 6.5 g/dL (5.8-8.1); Sodium 139 mmol/L (136-145)
[2024-02-09 12:36] LABS: Troponin I 0.012 ng/mL (< 0.028)
[2024-02-09 14:43] LABS: Bacteria/HPF None Seen HPF (None Seen); Bilirubin Negative (Negative); Blood, Urine Negative (Negative); CAUTI Indications for Culture Alt mental st,lethar; Clarity Clear (Clear); Glucose, Urine (Dipstick) Normal (Negative); Ketone, Urine Negative (Negative); Leukocyte Negative Leu/uL (Negative); Nitrite Negative (Negative); Protein, Urine (Dipstick) Negative (Neg-Trace); RBC/HPF 0-3 HPF (0-3); Squamous Epithelial None Seen HPF (0-3); Urobilinogen Normal mg/dL (Less than 2); WBC/HPF 0-3 HPF (0-3); pH, Urine 6.5 (5.0-9.0)
[2024-02-09 15:12] LABS: Lactic Acid 0.8 mmol/L (0.5-2.2)
[2024-02-09 15:24] LABS: Urine Culture Reflex No No
== END 2024-02-09 19:39 | disposition short-term general hospital (02) ==
LOC: ERS 10:54
DX: E11.649 Type 2 diabetes mellitus with hypoglycemia without coma (principal); J44.9 Chronic obstructive pulmonary disease, unspecified; Z79.4 Long term (current) use of insulin
CPT/HCPCS: 36415; 36416; 70450; 71045; 80053; 81001; 82805; 83605; 83735; 83880; 84484; 85025; 93005; 94760; 96361; 96365